=== PATIENT | female | born 1970 | race Caucasian/White ===

== ENCOUNTER → 2016-10-03 | Outpatient (CLI) | payer BC | LOC: MC.RAD 13:36 | DX: Z12.31 Encounter for screening mammogram for malignant neoplasm of breast (principal); Z80.3 Family history of malignant neoplasm of breast ==

== ENCOUNTER → 2017-10-10 | Outpatient (CLI) | payer BC | LOC: MC.RAD 08:00 | DX: Z12.31 Encounter for screening mammogram for malignant neoplasm of breast (principal) ==

== ENCOUNTER → 2018-11-18 | Outpatient (CLI) | payer BC | LOC: MC.RAD 11:31 | DX: Z12.31 Encounter for screening mammogram for malignant neoplasm of breast (principal) ==

== ENCOUNTER → 2020-01-29 | Outpatient (CLI) | payer BC | LOC: MC.RAD 15:48 | DX: Z12.31 Encounter for screening mammogram for malignant neoplasm of breast (principal); Z98.82 Breast implant status ==

== ENCOUNTER → 2021-02-22 | Outpatient (CLI) | payer BC | LOC: MC.RAD 12:53 | DX: Z12.31 Encounter for screening mammogram for malignant neoplasm of breast (principal); Z98.82 Breast implant status ==

== ENCOUNTER → 2021-08-25 | Outpatient (CLI) | payer BC | LOC: COL.RAD 12:22 | DX: N39.0 Urinary tract infection, site not specified (principal); Z90.710 Acquired absence of both cervix and uterus ==

== ENCOUNTER → 2022-03-07 | Outpatient (CLI) | payer BC | LOC: MC.RAD 11:00 | DX: Z12.31 Encounter for screening mammogram for malignant neoplasm of breast (principal) ==

== ENCOUNTER → 2023-09-21 | Outpatient (CLI) | payer BC | LOC: COL.RAD 08:38 | DX: M51.16 Intervertebral disc disorders with radiculopathy, lumbar region (principal); M41.85 Other forms of scoliosis, thoracolumbar region ==

== ENCOUNTER 2023-11-05 15:49 | Emergency (ER) | payer BC ==
[~2023-11-05] VITALS: Ht 165.1 cm; Wt 57.7 kg
[2023-11-05 16:03] VITALS: TEMP 98.3
[2023-11-05] MEDS ORDERED: fentaNYL 50 MCG/ML 2 ML VIAL IM ONE (18:00)
[2023-11-05] MEDS ORDERED: Ketorolac 60 MG/2 ML VIAL IM ONE (18:00)
[2023-11-05] MEDS ORDERED: PERCOCET 325 MG1 TA2 PO (19:05)
[2023-11-05] MEDS ORDERED: Home oxyCODONE/Acetaminophen 5/325 MG #4 TAB/PACK PO ONE (19:15)
[2023-11-05 19:19] VITALS: BP 111/76; PULSE 88
== END 2023-11-05 19:19 | disposition home or self-care (01) ==
LOC: COL.ER 15:49
DX: M54.50 Low back pain, unspecified (principal); Z98.890 Other specified postprocedural states
CPT/HCPCS: J1885; J3010

== ENCOUNTER 2024-01-04 09:45 | Outpatient (RCR) | payer BC ==
[~2024-01-04 09:45] MED LIST: PERCOCET 325 MG1 TA2 PO
== END 2024-01-06 | disposition home or self-care (01) ==
LOC: WSPT
DX: M54.16 Radiculopathy, lumbar region (principal); Z98.890 Other specified postprocedural states

== ENCOUNTER → 2024-05-09 | Outpatient (CLI) | payer BC | LOC: MC.RAD 10:57 | DX: Z12.31 Encounter for screening mammogram for malignant neoplasm of breast (principal) ==